=== PATIENT | female | born 1995 | race Caucasian/White ===

== ENCOUNTER 2017-01-07 00:59 | Emergency (ER) | payer BC ==
[~2017-01-07] VITALS: Ht 162.6 cm; Wt 65.0 kg
[2017-01-07 01:13] VITALS: TEMP 36.8
[2017-01-07] MEDS ORDERED: MECLIZINE HCL 25 MG TAB PO STA (01:39)
[2017-01-07] MEDS ORDERED: SODIUM CHLORIDE 0.9% 1000ML 1,000 ML IV STA (01:39)
[2017-01-07 01:40] VITALS: Ht 162.6 cm; Wt 65.0 kg
[2017-01-07 01:47] VITALS: O2SAT 98
[2017-01-07] MEDS ORDERED: AMPH20TA2 PO (02:01)
[2017-01-07 02:12] LABS: BASO % 0.1 %; BASO ABS # 0.01 K/uL (0-0.2); COMPLETE YES; HEMATOCRIT 38.9 % (37-47); IG% 0.3 %; LYMPH % 39.7 %; LYMPH ABS # 2.85 K/uL (1.2-3.4); MEAN CELL VOLUME 90.9 fL (80-100); MEAN CORPUSCULAR HEMOGLOBIN 31.5 pg (25-34); MEAN CORPUSCULAR HGB CONC 34.7 g/dl (32-36); MEAN PLATELET VOLUME 9.1 fL (7.4-10.4); MONO % 7.5 %; NEUT % 50.4 %; PLATELET COUNT 254 K/uL (130-400); RED BLOOD COUNT 4.28 M/uL (4.2-5.4); WHITE BLOOD COUNT 7.17 K/uL (4.8-10.8)
[2017-01-07 02:31] LABS: ALT/SGPT 14 U/L (12-78); AST/SGOT 14 U/L (15-37); BLOOD UREA NITROGEN 17 mg/dl (7-18); CALCIUM 8.6 mg/dl (8.5-10.1); CARBON DIOXIDE 29 mmol/L (21-32); CHLORIDE 104 mmol/L (98-107); CREATININE 0.87 mg/dl (0.60-1.20); GLUCOSE 87 mg/dl (70-99); POTASSIUM 3.6 mmol/L (3.5-5.1); SODIUM 142 mmol/L (136-145)
[2017-01-07 02:36] LABS: PREG INTERNAL NEGATIVE QC NEG CLEAR BACKGROUND; PREG INTERNAL POSITIVE QC POS CONTROL LINE
[2017-01-07 02:41] LABS: ALKALINE PHOSPHATASE 90 U/L (45-117)
[2017-01-07 03:42] VITALS: BP 123/76; PULSE 80; O2SAT 95
--- NOTE | 2017-01-07 03:44 | EMERGENCY ROOM VISIT NOTE ---
History First contact with patient: 01:34 Chief Complaint: RECTAL BLEEDING Stated Complaint: DIZZY,CLOSED THROAT,BLOOD IN STOOL Nursing Triage Summary: Patient reports a history of "something sticking out by my rectum" and "blood in my stool occassionally." Passing a bowel movement was difficult for patient today and when she was able to go, she noticed a lot of blood in her stool. Patient reports that she has been dizzy with sudden head and body movements for several days. No vomiting or pain. History of Present Illness The patient is a 21 year old female who presents to the Emergency Room with complaints of dizziness that is intermittent for the past 2 days with intermittent blood in her stool the past few months. Patient suffers from constipation. No black stool. Patient thinks she might have a hemorrhoid. Patient states she stood up today and felt dizzy. She felt as if the room is spinning. Patient denies recent illness, chest pain, dyspnea, fever, chills, cough, congestion, abdominal pain, vomiting, diarrhea, urinary symptoms. She is tolerating by mouth fluids and food. Review of Systems See HPI for pertinent positives & negatives. A total of 10 systems reviewed and were otherwise negative. Past Medical/Surgical History ADHD Social History Smoking Status: Never Smoker Smokeless Tobacco Use: No Alcohol Use: occasionally Drug Use: none Occupation Status: [employer] student Current/Historical Medications Scheduled Amphetamine-Dextroamphetamine 20MG (Adderall 20MG), 20 MG PO DAILY Allergies Coded Allergies: No Known Allergies (Unverified , 01/07/17) Physical Exam Vital Signs Date Time Temp Pulse Resp B/P Pulse Ox O2 Delivery O2 Flow Rate FiO2 01/07/17 02:23 72 18 121/87 98 Room Air 01/07/17 01:51 73 01/07/17 01:47 98 Room Air 01/07/17 01:47 64 18 122/75 98 Room Air 72 121/87 86 132/86 01/07/17 01:13 36.8 73 18 116/78 98 Room Air Physical Exam VITALS: Vitals are noted on the nurse's note and reviewed by myself. Vital signs stable. GENERAL: Pleasant female, in no acute distress, nondiaphoretic, well-developed well-nourished. SKIN: The skin was without rashes, erythema, edema, or bruising. There is no tenting of the skin. Capillary reflex less than 2 seconds. HEAD: Normocephalic atraumatic. EARS: External auditory canals clear, tympanic membranes pearly watts without erythema or effusion bilaterally. EYES: Pupils equal round and reactive to light and accommodation. Conjunctivae without injection, sclerae without icterus. Extraocular movements intact. No nystagmus NOSE: Patent, turbinates without inflammation or discharge. No sinus tenderness. MOUTH: Mucous membranes moist. Pharynx without erythema or exudate. Uvula midline. Airway patent. Tongue does not deviate. NECK: Supple without nuchal rigidity. No lymphadenopathy. No thyromegaly. Cervical spine is nontender. No JVD. HEART: Regular rate and rhythm without murmurs gallops or rubs. LUNGS: Clear to auscultation bilaterally without wheezes, rales or rhonchi. No dullness to percussion. No retractions or accessory muscle use. ABDOMEN: Positive bowel sounds x 4. Normal tympanic percussion. Soft, nontender, without masses or organomegaly. Burnett sign negative. No guarding or rebound tenderness. Rectal exam: Nonthrombosed hemorrhoid at 6:00, brown stool, faintly positive insurance premium auditor present MUSCULOSKELETAL: No muscle atrophy, erythema, or edema noted. NEURO: Patient was alert and oriented to person place and time. Normal sensation to light and sharp touch. No focal neurological deficits. Cranial nerves II through XII grossly intact. No pronator drift. Cerebellar exam intact Medical Decision & Procedures Laboratory Results 01/07/17 01:50 Red Blood Count 4.28, Mean Corpuscular Volume 90.9, Mean Corpuscular Hemoglobin 31.5, Mean Corpuscular Hemoglobin Concent 34.7, Mean Platelet Volume 9.1, Neutrophils (%) (Auto) 50.4, Lymphocytes (%) (Auto) 39.7, Monocytes (%) (Auto) 7.5, Eosinophils (%) (Auto) 2.0, Basophils (%) (Auto) 0.1, Neutrophils # (Auto) 3.61, Lymphocytes # (Auto) 2.85, Monocytes # (Auto) 0.54, Eosinophils # (Auto) 0.14, Basophils # (Auto) 0.01 01/07/17 01:50 Test 01/07/17 01:50 White Blood Count 7.17 K/uL (4.8-10.8) Red Blood Count 4.28 M/uL (4.2-5.4) Hemoglobin 13.5 g/dL (12.0-16.0) Hematocrit 38.9 % (37-47) Mean Corpuscular Volume 90.9 fL (80-100) Mean Corpuscular Hemoglobin 31.5 pg (25-34) Mean Corpuscular Hemoglobin Concent 34.7 g/dl (32-36) Platelet Count 254 K/uL (130-400) Mean Platelet Volume 9.1 fL (7.4-10.4) Neutrophils (%) (Auto) 50.4 % Lymphocytes (%) (Auto) 39.7 % Monocytes (%) (Auto) 7.5 % Eosinophils (%) (Auto) 2.0 % Basophils (%) (Auto) 0.1 % Neutrophils # (Auto) 3.61 K/uL (1.4-6.5) Lymphocytes # (Auto) 2.85 K/uL (1.2-3.4) Monocytes # (Auto) 0.54 K/uL (0.11-0.59) Eosinophils # (Auto) 0.14 K/uL (0-0.5) Basophils # (Auto) 0.01 K/uL (0-0.2) RDW Standard Deviation 41.7 fL (36.4-46.3) RDW Coefficient of Variation 12.7 % (11.5-14.5) Immature Granulocyte % (Auto) 0.3 % Immature Granulocyte # (Auto) 0.02 K/uL (0.00-0.02) Anion Gap 9.0 mmol/L (3-11) Est Creatinine Clear Calc Drug Dose 87.6 ml/min Estimated GFR () 109.6 Estimated GFR (Non- 94.6 BUN/Creatinine Ratio 20.0 (10-20) Calcium Level 8.6 mg/dl (8.5-10.1) Total Bilirubin 0.2 mg/dl (0.2-1) Direct Bilirubin < 0.1 mg/dl (0-0.2) Aspartate Amino Transf (AST/SGOT) 14 U/L (15-37) Alanine Aminotransferase (ALT/SGPT) 14 U/L (12-78) Alkaline Phosphatase 90 U/L (45-117) Total Protein 7.8 gm/dl (6.4-8.2) Albumin 3.9 gm/dl (3.4-5.0) Thyroid Stimulating Hormone (TSH) 1.740 uIu/ml (0.300-4.500) Human Chorionic Gonadotropin, Qual NEG (NEG) Medications Administered Medications (Trade) Dose Ordered Sig/Keya Route Start Time Stop Time Status Last Admin Dose Admin Sodium Chloride (Nss 1000ml) 1,000 ml @ 999 mls/hr Q1H1M STAT IV 01/07/17 01:39 01/07/17 02:39 DC 01/07/17 02:03 999 MLS/HR Meclizine HCl (Antivert Tab) 25 mg NOW STAT PO 01/07/17 01:39 01/07/17 01:42 DC 01/07/17 02:03 25 MG ED Course Prior records/ancillary studies reviewed. Triage Nursing notes reviewed. The patient's history was concerning for dizziness and vertigo. Differential diagnosis: Etiologies such as benign positional vertigo, dehydration, hypovolemia, anemia, tumor, infection, hypoglycemia, electrolyte abnormalities, cardiac sources, intracerebral event, toxicologic, neurologic, as well as others were entertained. Physical examination: As above. No pathologic nystagmus. ER treatment provided: IV hydration with normal saline Meclizine On reassessment the patient felt well. Diagnostics interpretation by me: ECG: Normal sinus rhythm without ischemic change or evidence of dysrhythmia. Normal sinus, normal intervals, no acute ST-T wave changes. Impression normal sinus rhythm interpreted by myself The labs revealed a normal CBC and chemistry panel. Negative hCG It appears the patient had an episode of benign-positional vertigo. Patient also has a hemorrhoid on clinical exam. She is advised to try [id number] hemorrhoid creams and to follow-up with GI if symptoms persist. She is advised to increase her fluid and fiber intake. She is advised to avoid straining when she does the bathroom. Her guaiac most likely is positive from hemorrhoids. She is advised to decrease her caffeine, alcohol, tobacco and salt intake. She is advised follow-up health services in a few days or here in the ER sooner for chest pain, weakness, numbness, tingling, heavy rectal bleeding, worsening signs or symptoms or as needed. Patient was neurovascularly and neurologically intact. She is well-appearing By the evaluation outlined above emergent etiologies such as infection, hypoglycemia, electrolyte abnormalities, cardiac sources, intracerebral event, toxicologic, neurologic,as well as others were deemed relatively unlikely. The pt informed about the findings as listed above. All questions were answered and pleased with the treatment. Return instructions were outlined and the patient was discharged in stable condition. Outpatient prescription management: Meclizine Referral: The patient was referred back to their primary care physician and GI for follow- up in 2 to 3 days for a recheck of the current condition. Case reviewed with my attending Medical Decision As above Impression Primary Impression: External hemorrhoid Additional Impression: Vertigo Departure Information Dispostion Home / Self-Care Condition GOOD Referrals Wolfgang Josue MD Forms WORK / SCHOOL INSTRUCTIONS, HOME CARE DOCUMENTATION FORM, IMPORTANT VISIT INFORMATION Patient Instructions My [facility], ED Vertigo Unspecified Additional Instructions Meclizine 25 m tablet every 8 hours as needed for dizziness. No alcohol or driving on this medication. Decrease caffeine, alcohol, tobacco and salt intake. Acetaminophen(Tylenol) may be used for fever or pain. Use 1000mg every six hours as needed. Avoid using more than 3000mg in a 24 hour period. Rest and drink plenty of fluids as tolerated. Continue current medications. Increase fluid and fiber intake. Recommend jaag-swu-[id number] hemorrhoid medications such as Preparation H or Anusol. Return to the ER immediately for worsening or persistent rectal bleeding, abdominal pain, vomiting, fevers, chest pains, difficulty breathing, worsening of your condition, or as needed. Follow up with your primary physician and gastrology in 2-3 days for a recheck of your current condition. Problem Qualifiers
[2017-01-07] MEDS ORDERED: MECLIZINE HCL 25MG HOME PACK PO ONE (03:45)
== END 2017-01-07 03:44 | disposition home or self-care (01) ==
LOC: C.EDB 01:00 → C.EDA 03:44
DX: K64.4 Residual hemorrhoidal skin tags (principal); R42 Dizziness and giddiness; K59.00 Constipation, unspecified; F90.0 Attention-deficit hyperactivity disorder, predominantly inattentive type

== ENCOUNTER 2017-02-19 03:02 | Emergency (ER) | payer BC ==
[~2017-02-19] VITALS: Ht 162.6 cm; Wt 63.5 kg
[~2017-02-19 03:02] MED LIST: AMPH20TA2 PO
[2017-02-19 03:10] VITALS: TEMP 37.2; Ht 162.6 cm; Wt 63.5 kg
[2017-02-19] MEDS ORDERED: KETOROLAC TROMETHAMINE 30 MG/ML VIAL IM STA (03:28)
[2017-02-19] MEDS ORDERED: XYLOCAINE 1%/SOD BICARB 20 ML VIAL INFIL ONE (03:30)
[2017-02-19] MEDS ORDERED: AMPH30TA2 PO (03:49)
[2017-02-19] MEDS ORDERED: IBUP-1050 PO (03:50)
[2017-02-19] MEDS ORDERED: NORCO 5/325MG HOME PACK PO ONE (04:30)
[2017-02-19] MEDS ORDERED: HYDR-5688 PO (04:30)
[2017-02-19] MEDS ORDERED: SULF800T23 PO (04:30)
[2017-02-19] MEDS ORDERED: SEPTRA DS HOME PACK 1 EA VIAL PO ONE (04:30)
--- NOTE | 2017-02-19 04:33 | EMERGENCY ROOM VISIT NOTE ---
History First contact with patient: 03:12 Chief Complaint: PELVIC PAIN Stated Complaint: VAGINAL PAIN/SORE History of Present Illness The patient is a 22 year old female who presents to the Emergency Room with complaints of a swollen area on her labia. The patient states she first noticed the swelling yesterday morning. It gradually increased throughout the day. The patient has been taking Advil and using warm compresses without relief. She states she has had swelling in this area before, but never this painful. She rates her current discomfort a 9/10. She denies any drainage from the area. She is sexually active and states that she had negative STD testing done a few months ago. She denies any fevers/chills. She states the pain is worse with walking or sitting. Review of Systems A complete 10 point review of systems was reviewed with the patient with pertinent positives and negatives as per history of present illness. All else were negative. Social History Smoking Status: Never Smoker Alcohol Use: occasionally Drug Use: none Housing Status: lives alone Occupation Status: [employer] student Current/Historical Medications Scheduled Amphetamine-Dextroamphetamine 30MG (Adderall 30MG), 30 MG PO DAILY Sulfa/Trimethoprim (Bactrim Ds 800MG/160MG), 1 TAB PO BID Scheduled PRN Hydrocodone/Acetaminophen 5MG/325MG ([place] 5MG/325MG), 1-2 TABLET PO Q4H PRN for Pain Ibuprofen (Advil), 200-600 MG PO DIRECTED PRN for Pain Allergies Coded Allergies: No Known Allergies (Unverified , 02/19/17) Physical Exam Vital Signs Date Time Temp Pulse Resp B/P Pulse Ox O2 Delivery O2 Flow Rate FiO2 02/19/17 04:47 86 14 102/82 100 02/19/17 03:10 37.2 100 17 111/78 98 Room Air Physical Exam VITALS: Vitals are noted on the nurse's note and reviewed by myself. Vital signs stable. GENERAL: This is a 22-year-old female, in no acute distress, nondiaphoretic, well-developed well-nourished. HEART: Regular rate and rhythm without murmurs gallops or rubs. LUNGS: Clear to auscultation bilaterally without wheezes, rales or rhonchi. No retractions or accessory muscle use. ABDOMEN: Positive bowel sounds x 4. Soft, nontender to palpation. GENITALIA: There is swelling and erythema of the left labia minora. There is a palpable cyst. No drainage. NEURO: Patient was alert and oriented to person place and time. Medical Decision & Procedures Medications Administered Medications (Trade) Dose Ordered Sig/Keya Route Start Time Stop Time Status Last Admin Dose Admin Ketorolac Tromethamine (Toradol Inj) 30 mg NOW STAT IM 02/19/17 03:28 02/19/17 03:40 DC 02/19/17 03:47 30 MG Trimethoprim/ Sulfamethoxazole (Sulfameth/ Trimeth Ds 800/ 160MG Home Pack) 1 homepack UD ONCE PO 02/19/17 04:30 02/19/17 04:31 DC 02/19/17 04:43 1 HOMEPACK Acetaminophen/ Hydrocodone Bitart ([place] 5/325mg Home Pack) 1 homepack UD ONCE PO 02/19/17 04:30 02/19/17 04:31 DC 02/19/17 04:43 1 HOMEPACK Procedure I examined the patient. Verbal consent was obtained to perform the procedure. After saline and Betadine cleansing and 2 mL of 1% buffered lidocaine anesthesia , the abscess was incised with a number 11 scalpel blade. A small amount of purulent material was released with more expressed by pressure. A swab was obtained for culture. The abscess cavity was further probed with a needle high lift driver. The area was then packed with sterile packing. The patient tolerated the procedure well. Medical Decision Differential diagnosis includes Bartholin's cyst, labial abscess, Jeremiah's gangrene, among others. The patient was evaluated as above. She appears to have a Bartholin's cyst. Incision and drainage was performed as noted in the procedure section. A small amount of packing was placed and the patient was instructed to follow-up with her INTERNET MARKETING DIRECTOR at home. She was placed on Bactrim pending the results of the culture. She was given a home pack and prescription of [place] for pain. Conservative measures were discussed. The patient was instructed to return here for any worsening symptoms. She verbalized understanding of my assessment and treatment plan was discharged home in good condition. [place] Drug Monitoring Program Search Results: patient reviewed within database, no issues identified Impression Primary Impression: Bartholin gland cyst Departure Information Dispostion Home / Self-Care Condition GOOD Prescriptions Hydrocodone/Acetaminophen 5MG/325MG ([place] 5MG/325MG) Tab 1-2 TABLET PO Q4H Y for Pain, #12 TAB For Initial Treatment Prov: Shanika Galeas .HERNANDEZ 02/19/17 Sulfa/Trimethoprim (Bactrim Ds 800MG/160MG) Tab 1 TAB PO BID for 7 Days, #14 TAB Prov: Shanika Galeas PA-C 02/19/17 Referrals No Doctor, Assigned (PCP) Patient Instructions My [facility] Additional Instructions You were prescribed Bactrim to be taken twice daily as prescribed. This is an antibiotic. All antibiotics have the potential to cause diarrhea. Stop this medication and contact a medical provider if you were to develop any significant adverse side effects including: wheezing, shortness of breath, passing out, vomiting, or a diffuse rash. Always take antibiotics as directed and COMPLETE the ENTIRE course regardless of the improvement of your symptoms. You have been prescribed [place] to be used for pain control. Take 1-2 tablets every 4-6 hours as needed for pain. This is a narcotic medication. You cannot drive or consume alcohol while on this medicine. This medicine should only be used for pain that cannot be controlled with [id number] pain medicines. For pain control, you can use the following oliz-llc-vabqtpw medicines (if >12 yo): - Regular strength (325mg/tab) Tylenol (acetaminophen) 2 tabs every 4-6 hours as needed. Do not exceed 12 tablets in a 24 hour period. Avoid taking more than 4 grams (4000 mg) of Tylenol per day. This includes any other sources of acetaminophen you may take on a regular basis. - Regular strength (200 mg/tab) Advil (ibuprofen) 1-2 tabs every 4-6 hours as needed. Do not exceed a dose of 3200 mg per day. Remove the packing in 48 hours. Follow-up with your INTERNET MARKETING DIRECTOR at home.
[2017-02-19 04:47] VITALS: BP 102/82; PULSE 86; O2SAT 100
== END 2017-02-19 04:48 | disposition home or self-care (01) ==
LOC: C.EDB 03:03
DX: N75.0 Cyst of Bartholin's gland (principal)